=== PATIENT | female | born 1945 | race Caucasian/White ===

== ENCOUNTER 2017-02-02 21:47 | Emergency (ER) | payer MEDICARE ==
[~2017-02-02] VITALS: Ht 167.6 cm; Wt 88.2 kg
[2017-02-02] MEDS ORDERED: NORVASC5 M1 PO (22:04)
[2017-02-02] MEDS ORDERED: BROVANA15 MCG/2 M IN (22:04)
[2017-02-02] MEDS ORDERED: PROVENTIL HFA IN (22:05)
[2017-02-02] MEDS ORDERED: HYDRALAZINE25 MG PO (22:05)
[2017-02-02] MEDS ORDERED: SPIRIVA IN (22:05)
[2017-02-02] MEDS ORDERED: METFORMIN500 MG PO (22:06)
[2017-02-02] MEDS ORDERED: CHLORTHALID25 MG PO (22:06)
[2017-02-02] MEDS ORDERED: AVAPRO300 MG PO (22:06)
[2017-02-02] MEDS ORDERED: NOVOLOG FL100 UNIT/M SC (22:07)
[2017-02-02] MEDS ORDERED: LANTUS100 UNIT/M SC ×2 (22:08)
[2017-02-02] MEDS ORDERED: CRESTOR20 MG PO (22:08)
[2017-02-02 22:58] LABS: HEMATOCRIT 32.8 % (37.0-47.0); HEMOGLOBIN 10.6 g/dl (12.0-16.0); IMMATURE GRANULOCYTES 0.4 % (0.0-1.0); MEAN CELL VOLUME 79.4 fL CALC (80.0-100.0); MEAN CORPUSCULAR HGB 25.7 pG CALC (26.0-32.0); MEAN CORPUSCULAR HGB CONC 32.3 g/L CALC (32.0-36.0); NEUT# 5.15 thou/uL (2.00-7.15); RED BLOOD COUNT 4.13 mill/uL (4.20-5.60); RED CELL DISTRI WIDTH 15.3 % (11.5-15.5)
--- NOTE | 2017-02-02 22:59 | NUR ---
BREATHING TREATMENT GIVEN. BREATHING TECH. FOR GOOD DEPOSITION TO THE LUNGS.
[2017-02-02 23:10] LABS: ALBUMIN 4.2 g/dL (3.2-5.0); ALKALINE PHOSPHATASE 92 u/l (38-126); ANION GAP 16 (6-22 (CALC)); BILIRUBIN, TOTAL 0.6 mg/dL (0.0-1.4); BUN 16 mg/dL (8-23); BUN/CREATININE RATIO 15 (12-20 (CALC)); CALCIUM 9.4 mg/dL (8.4-10.2); CARBON DIOXIDE 29 mmol/l (22-30); CHLORIDE 92 mmol/l (95-108); GFR 55 ML/MIN (>=60 (CALC)); GFR FOR AFR.AMER. > 60 ML/MIN (>=60 (CALC)); GLUCOSE 121 mg/dL (82-115); POTASSIUM 4.4 mmol/l (3.5-5.1); SGOT/AST 26 u/l (9-36); SGPT/ALT 31 u/l (11-66); SODIUM 132 mmol/l (137-146); TOTAL PROTEIN 7.8 g/dL (6.3-8.2)
[2017-02-03 02:59] VITALS: BP 162/70
== END 2017-02-03 02:58 | disposition short-term general hospital (02) ==
LOC: ED 21:47
PROVIDERS: Emergency Medicine
DX: R91.8 Other nonspecific abnormal finding of lung field (principal); R06.02 Shortness of breath; R09.81 Nasal congestion; R05 Cough; R00.0 Tachycardia, unspecified